=== PATIENT | female | born 1995 | race Caucasian/White ===

== ENCOUNTER 2022-06-25 19:04 | Outpatient (CLI) | payer BC, OTHER, SELFPAY ==
[2022-06-25 20:27] LABS: Cholesterol* 179 mg/dL (90-199); HDL Cholesterol* 35 mg/dL (>=50)
[2022-06-25 20:38] LABS: INR 0.93 (0.91-1.10); Partial Thromboplastin Time* 31 Seconds (23-33)
[2022-06-25 20:44] LABS: LDL Cholesterol Calculated 15 mg/dL (<100); Triglycerides* 646 mg/dL (40-149)
[2022-06-29 06:03] LABS: von WillebrandFactorAntigen 129 % (52-214); vonWillebrandFactorActivityRCF 104 % (51-215)
== END 2022-06-25 19:05 | disposition home or self-care (01) ==
PROVIDERS: Visit Provider Registered Nurse
DX: Z01.419 Encounter for gynecological examination (general) (routine) without abnormal findings (principal); N92.0 Excessive and frequent menstruation with regular cycle; E66.01 Morbid (severe) obesity due to excess calories; Z13.6 Encounter for screening for cardiovascular disorders
CPT/HCPCS: 80061; 84443; 85240; 85245; 85246; 85610; 85730

== ENCOUNTER 2025-01-21 03:54 | Emergency (ER) | payer OTHER, SELFPAY ==
--- OUTSIDE RECORDS SUMMARY | 2025-01-21 03:56 | XMS_ITS | Clinical Summary ---
Author Organization [facility] Address [address] [place] [id number] Care Team Providers Care Nurse Obgyn Name Role Phone Kat Marrufo NP Primary Care Provider [phone] Allergies Active Allergy Reactions Criticality Noted Date Comments Grass Pollen-[place], Standard Other - Describe In Comment Field 01/27/2012 Watery eyes Medications pyridoxine, vitamin B6, (VITAMIN B6) 25 mg tabletIndications:N ausea Take 1 tab twice daily as needed for nausea 60 tablet 3 9 Active ondansetron (ZOFRAN ODT) 4 mg disintegrating tabletIndications:N ausea Place 1 tablet on the tongue every 8 hours if needed for Nausea/Vomit ing. 30 tablet 9 Active vitamin-folic acid 1 mg ( RX) tablet/capsuleIndic ations:Supervision of normal first , antepartum (HC) Take 1 tablet by mouth once daily. 90 tablet 3 9 Active cholecalciferol (VITAMIN D-3) 2,000 unit capsuleIndications: Vitamin D deficiency Take 1 capsule by mouth once daily. 90 capsule 3 9 Active Active Problems Problem Noted Date Diagnosed Date Supervision of normal 10/06/2018 Supervision of normal first , antepartu m 10/01/2018 Overview (10/06/2018): Not sleeping well at night. Difficulty falling asleep Has had chronic pain. Some nausea. Significant other not very involved. Lives at home with dad and siblings. Environmental allergies 05/26/2013 Anxiety 05/26/2013 Dyspepsia 05/26/2013 Immunizations Immunization Administration Dates Next Due AMB Influenza, IIV3 (Age >=3 years)(Flu Clinic Only) 05/15/2010,04/25/2009,05/30/2008 DTaP 10/07/2002 DTaP-HIB (TriHIBIT) 08/09/1998,1997,1997 HIB PRP-OMP (PedvaxHIB) 1997 HPV 9 (Gardasil 9) 04/17/2015 Hepatitis A (Peds) 05/26/2013,01/27/2012 Hepatitis B (Peds) 1997,1997, 997 Human Papilloma Virus Vaccine 05/26/2013, 012 Inactivated Polio Vaccine 10/07/2002,1997, 1997 Influenza, IIV3 (Age 6-35 mos) 05/07/2003 Influenza, IIV3 (Age >=3 years) 05/25/2007,06/15,05/25/2003 MMR 10/07/2002,08/09/1998 Meningococcal Vaccine (Menactra) 11/01/2009 Meningococcal Vaccine (Menomune) 05/26/2013 Oral Polio Vaccine 02/20/1998 Tdap 11/01/2009 Tuberculin (PPD) 05/12/1998 Varicella Vaccine 11/01/2009,05/12/1998 Family History Medical History Relation Name Comments Depression Brother 2 Good Health Brother 3 Other Brother 4 still born Hyperlipidemia Father Pablo Cancer Maternal Grandfather skin Hyperlipidemia Maternal Grandfather Hypertension Maternal Grandfather Hyperlipidemia Maternal Grandmother Good Health Mother Amy Psychiatric illness Mother Amy anxiety Cancer-colon Paternal Grandfather at age 66 from colon cancer Other Paternal Grandmother unknown heart issues - natural causes 67 yr Cancer Paternal Uncle 2 brain cance r Depression Sister 1 Good Health Sister 2 Vandana Relation Name Status Comments Brother 1 Alive Brother 2 Alive Brother 3 Alive Brother 4 Father Pablo Alive Maternal Grandfather Alive Maternal Grandmother Alive Mother Amy Alive Paternal Grandfather Paternal Grandmother Paternal Uncle 1 (Age 16) Paternal Uncle 2 Sister 1 Alive Sister 2 Vandana Alive Social History Tobacco Use Types Packs/Day Years Used Date Smoking Tobacco: Never Smokeless Tobacco: Never Alcohol Use Standard Drinks/Week Comments No 0 (1 standard drink = 0.6 oz pur e alcohol) Humiliation, Afraid, Rape, and Kick questionnair e Answer Date Recorded Fear of Current or Ex-Partner No Emotionally Abused No 10/06/2018 Physically Abused No 10/06/2018 Sexually Abused No 10/06/2018 PHQ-2 Answer Date Recorded PHQ-2 Score 0 09/24/2018 [facility] - Occupational Stress Questionnaire Answer Date Recorded Feeling of Stress Only a little 10/06/2018 Exercise Vital Sign Answer Date Recorde d Days of Exercise per Week 7 days 2018 Minutes of Exercise per Session 60 min 10/06/2018 Comments No Sex and Gender Information Value Date Recorded Sex Assigned at Not on file Legal 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 [employer] Gender Identity Not on file Sexual Orientation Not on file 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 Not on file Not on file Not on file Obstetrics History Para Term AB IAB SAB Ectopic Multiple Livin g Live Births 1 Date Outcome GA Total Labor Labor/2nd/3rd Weight Sex Type Anes PTL Brittni A1 A5 Name Clin Last Filed Vital Signs Vital Sign Reading Time Taken Comments Blood Pressure 112/60 11/20/2018 1:11 PM CDT Pulse 96 11/20/2018 1:11 PM CDT Temperature 36.6 C (97.9 F) 11/15/2018 11:43 AM CDT Respiratory Rate 18 11/20/2018 1:11 PM CDT Oxygen Saturation 100% 11/15/2018 3:36 PM CDT Inhaled Oxygen Concentration - - Weight 84.2 kg (185 lb 11.2 oz) 11/20/2018 1:11 PM CDT Height 161.7 cm (5' 3.66) 11/20/2018 1:11 PM CD T Body Mass Index 32.22 11/20/2018 1:11 PM CDT Plan of Treatment Health Maintenance Due Date Last Done Comments Depression screening for age 12+ 09/29/2019 09/28/2018, 09/24/2018, 09/24/2018 Tetanus booster 11/02/2019 11/01/2009 BMI (ht and wt on same day) for age 18+ 11/21/2019 11/20/2018, 11/06/2018, 10/06/2018, Additional history exists COVID-19 vaccine series ( - 2023- season) 2024 Influenza Vaccine (#1) 2025 0, 04/25/2009, 05/30/2008, Additional history exists Pap test for age 21-65 06/25/2025 2, 06/25/2022, 01/19/2021, Additional history exists Hepatitis B series for 19+ Completed 12/12, 1997, 1997 HIV for age 15-65 Completed 11/03/2018 Hepatitis C screening for age 18-79 Completed 11/03/2018 Pneumococcal series for age 6-49 Aged Out No longer eligible based on patient's age to complete this topic Procedures Procedure Name Priority Date/Time Associated Diagnosis Comments HPV HIGH RISK Routine 06/25/2022 12:00 PM [employer]ICE [employer] ANTI HIV 1/2 Routine 11/03/2018 3:21 PM CDT Encounter for supervision of normal first in first trimester (HC) ANTI HCV Routine 11/03/2018 3:21 PM CDT Encounter for supervision of normal first in first trimester (HC) from Last 3 Months or Most Recently Relevant to Health Maintenance Results * HPV HIGH RISK (06/25/2022 12:00 PM [employer]ICE PRESIDENT [employer]) TYPE 16 Negative Negative 07/02/2022 11:00 AM VICE PRESIDENT INDUSTRIAL RELATIONS [facility] TYPE 18 Negative Negative 07/02/2022 11:00 AM VICE PRESIDENT INDUSTRIAL RELATIONS [facility] OTHER HIGH RISK TYPES Negative Negative 07/02/2022 11:00 AM VICE PRESIDENT IND[employer]RIAL RELATIONS [facility] Other (Cervical) 06/25/2022 12:00 PM VICE PRESIDENT [employer]ATIONS 06/27/2022 4:07 PM VICE PRESIDENT [employer]AL RELATIONS [facility]ative [facility] 07/02/2022 11:00 AM VICE PRESIDENT [employer]AL RELATIONS HPV types 16, 18, 31, 33, 35, 39, 45, 51, 52, 56, 58, 59, 66 and 68 DNA were undetectable or below the pre-set threshold. Methodology: Marie Ricardo 4800 HPV Test us Cayla Ceron NP MICROBIOLOGY Final Res ult [facility] [address] [place] [address], * ANTI HCV (11/03/2018 3:21 PM CDT) HEPATITIS C ANTIBODY Non-React romero Non-React romero 11/03/2018 8:20 PM CDT [facility] Comment:Antibodies to HCV no t detected; does not exclude the possibility of exposure to HCV. Blood BLOOD SPECIMEN / Unknown Venipuncture / Unknown 11/03/2018 3:21 PM CDT 11/03/2018 3:21 PM CDT us Vandana Barclay MD SEND OUTS Final Re sult [facility] [address] [place] [address], [place] * ANTI HIV 1/2 (11/03/2018 3:21 PM CDT) Pathologist [facility] HIV-1/HIV-2 ANTIBODY Non-Reacti ve Non-Reacti ve 11/03/2018 8:35 PM CDT [facility] Comment:HIV-1 p24 and HIV-1/ HIV-2 Ab not detected. Blood BLOOD SPECIMEN / Unknown Venipuncture / Unknown 11/03/2018 3:21 PM CDT 11/03/2018 3:21 PM CDT us Vandana Barclay MD SEND OUTS Final Re sult [facility] [address] [place] [address], from Last 3 Months or Most Recently Relevant to Health Maintenance Care Teams Nurse Obgyn Relationship Specialty Start Date End Date Kat Marrufo NP [address] [place] [address] [place] [address] PCP - General Family Practice 04/17/15
[2025-01-21 04:42] VITALS: BP 144/81; PULSE 79; RESP 18; TEMP 36.7; O2SAT 99; BMI 42.5
[2025-01-21 06:30] VITALS: BP 138/81; PULSE 79; RESP 18; TEMP 36.7; O2SAT 99
[2025-01-21 06:55] VITALS: TEMP 36.7
[2025-01-21] MEDS: CYCLOBENZAPRINE HCL 10 MG TABLET 5 MG PO (06:55)
[2025-01-21] MEDS: KETOROLAC 10 MG TABLET PO (06:55)
[2025-01-21 07:05] LABS: Hematocrit 35.8 % (33.0-51.0); Hemoglobin* 11.5 gm/dL (12.0-16.0); Immature Granulocytes Abs Auto 0.01 K/uL (0.00-0.30); Immature Granulocytes Pct Auto 0.1 %; Mean Corpuscular HGB Conc 32 gm/dL (32-36); Mean Corpuscular Hemoglobin 26 pg (26-34); Mean Corpuscular Volume 81 fL (80-100); RDW Coefficient of Variation % 13.5 % (11.5-15.5); Red Blood Count 4.42 m/uL (4.00-5.20); White Blood Count* 8.91 K/uL (4.50-11.00)
--- NOTE | 2025-01-21 07:07 | ED_ITS ---
HPI - General Adult General Chief complaint: Back Injury/Pain Stated complaint: Back pain Time Seen by Provider: 01/21/25 05:12 Source: patient Mode of arrival: ambulatory Limitations: no limitations History of Present Illness HPI narrative: 29-year-old female presents the emergency department with pain in the midback area that started about 2 hours prior to presentation to the ED. Unfortunately, it is been absolute chaos here and she had a 3 hour wait prior to being seen. Pain is located achy, dull in the midback area, does not radiate. No radiculopathy. No abdominal pain, nausea or vomiting. Did just start her menstrual cycle, tried taking some ibuprofen at bedtime prior to her back pain starting, was worried she could not take more of the medication. Woke at 1:00 a.m. with symptoms, called the triage line and it sounds as though they could not reassure her adequately and advised that she be seen in the ED. no injury or trauma. No dysuria. No unusual vaginal discharge. No prior history of kidney stones. No prior history of similar symptoms. Pain is along the paraspinal muscles, does not radiate around to the front, is not changing, is not exertional or positional. Denies chance of . Not try any interventions prior to coming to ED. Reports her past medical history is benign, no major long-term health problems. No long-term prescription medications. No allergies. ROS is notable for the back pain as stated above. Negative for other gynecological, abdominal, generalized or urinary changes. Related Data Previous Rx's ?Medication ?Instructions ?Recorded cyclobenzaprine 10 mg tablet 5 - 10 mg (0.5 - 1 x 10 m g) PO HS 01/21/25 PRN muscle spasm #10 tabs ketorolac 10 mg tablet 10 mg PO Q6H PRN pain 5 days #20 01/21/25 tabs Allergies Allergy/AdvReac Type Severity Reaction Status Date / Time No Known Drug Allergies Allergy Verified 01/21/25 04:45 [facility] Medical History History of abnormal cervical Pap smear (12/15/18) Vaginal delivery (05/15/19) Family History Family/Other Colon cancer Diabetes Father High blood pressure High cholesterol Family/Other FH: mental illness Sister Liver disease Brother Seizure disorder Social History Smoking Status: Never smoker Second hand tobacco smoke exposure: No How often do you have a drink containing alcohol: never AUDIT-C Alcohol total score: 0 Non-prescribed substance use: denies use Exam Const: Vital Signs, click to edit/add: Vital Signs - 24 hr 01/21/25 04:42 01/21/25 06:30 01/21/25 06:55 Temperature 98.0 F 98.0 F 98.0 F Pulse Rate [Right Pulse Oximeter] 79 79 Respiratory Rate 18 18 Blood Pressure [Ri ght Upper Arm] 144/81 H 138/81 Pulse Oximetry 99 99 Oxygen Delivery Me thod Room Air Room Air Documenting provider has reviewed patient's vital signs: yes Common normals: no apparent distress and alert General appearance: cooperative and well kempt HENMT: Common normals: normocephalic Head and scalp: normocephalic Eye: Common normals: conjunctivae normal General eye: normal appearance of both eyes Conjunctiva: conjunctiva(e) normal Neck & C-Spine: Common normals: full ROM and no lymphadenopathy Resp: Common normals: normal respiratory effort, no use of accessory muscles and clear to auscultation bilaterally Effort & inspection: able to speak in complete sentences Auscultation: clear to auscultation bilaterally Cardio: Common normals: regular rate, regular rhythm, S1 normal heart sound, S2 normal heart sound and no murmurs Rate: regular rate Rhythm: regular rhythm Heart sounds: S1 normal and S2 normal GI: Common normals: Normal to inspection, nondistended, normoactive bowel sounds present, soft to palpation, no hepatosplenomegaly and no masses Palpation: soft and no hepatosplenomegaly Other: Very mild tenderness to mid abdomen, not suprapubic region : Common normals: no CVA tenderness Bladder/kidney exam: no CVA tenderness Back & Pelvis: Common normals: no CVA tenderness Other: Mild tenderness to paraspinal muscles of midback. No point bony tenderness. Normal range of motion. Extremity: Common normals: normal to inspection and normal capillary refill Neuro: Common normals: moves all extremities, no focal motor deficits and gait normal Sensorium/orientation: alert Speech: speech normal Psych: Common normals: speech normal Appearance: well kempt Attitude: engaged Activity/motor behavior: appropriate eye contact Speech: normal speech Skin: Common normals: no rashes or lesions noted General skin exam: no rashes or lesions noted Course Course ED Course: 29-year-old female with mild diffuse mid back pain of uncertain etiology. No features of abdominal pain, nausea vomiting or other indications that would suggest pancreatitis. No red flags that would suggest infection or worrisome gynecological source. Is actively on her menses, low risk of ectopic or other complication. Patient seems concerned out of proportion to exam, therefore we will obtain some basic labs to ensure proper biliary function, no signs of pancreatitis, no or urinary infection. Will give Toradol 10 mg p.o. x1 as well as 5 mg of Flexeril and await clinical response with these results. Reevaluation(s) Time of Reevaluation #1: 08:07 Reevaluation #1: Patient had moderate improvement of her pain with the Toradol and Flexeril. Counseled that her labs are normal. There are no obvious signs of pancreatitis, biliary obstruction, inflammatory process. Her urine did show some blood but this is not terribly unexpected because she is actively on her menses. There were no signs of infection or other alarming features. Counseled patient that I think this is most likely mechanical but certainly could be referred from a gynecological or other intra-abdominal source. I would recommend that since her symptoms have improved quite a bit that we try symptomatic treatment for a few days and if her symptoms have not improved does recommend primary care or Gynecology follow-up for pelvic exam further workup and consideration of ultrasound. I have given her prescription for Toradol 10 mg q.6 hours p.r.n. and Flexeril 5-10 mg at bedtime p.r.n. we discussed the risk of sedation. Alarm symptoms reviewed that would warrant ED presentation. She verbalizes understanding and agreement of this. Vital Signs Vital signs: Initial Vital Signs Temperature 98.0 F 01/21/25 04:42 Temperature Source Temporal Artery Scan 01/21/25 04:42 Pulse Rate 79 01/21/25 04:42 Respiratory Rate 18 01/21/25 04:42 Blood Pressure 144/81 H 01/21/25 04:42 Blood Pressure Mean 102 01/21/25 04:42 Blood Pressure Position Sitting 01/21/25 04:42 Pulse Oximetry 99 01/21/25 04:42 Oxygen Delivery Method Room Air 01/21/25 04:42 Vital Signs Temperature 98.0 F 01/21/25 04:42 Pulse Rate 79 01/21/25 04:42 Respiratory Rate 18 01/21/25 04:42 Blood Pressure 144/81 H 01/21/25 04:42 Pulse Oximetry 99 01/21/25 04:42 Oxygen Delivery Method Room Air 01/21/25 04:42 Temperature 98.0 F 01/21/25 06:55 Pulse Rate 79 01/21/25 06:30 Respiratory Rate 18 01/21/25 06:30 Blood Pressure 138/81 01/21/25 06:30 Pulse Oximetry 99 01/21/25 06:30 Oxygen Delivery Method Room Air 01/21/25 06:30 Medications Administered Medications: Discontinued Medications Generic Name Dose Route Start Last Admin Trade Name Freq PRN Reason Stop Dose Admin Cyclobenzaprine HCl 5 mg 01/21/25 06:44 01/21/25 06:55 Cyclobenzaprine Hcl 10 Mg Tablet PO 01/21/25 06:45 5 mg ONCE ONE Administration Ketorolac Tromethamine 10 mg 01/21/25 06:44 01/21/25 06:55 Ketorolac 10 Mg Tablet PO 01/21/25 06:45 10 mg ONCE ONE Administration Medical Decision Making Lab Data Lab results reviewed: Yes I reviewed the patient's lab results Lab results narrative: Labs reassuring. No signs of pancreatitis or urine infection. There is blood in the urine but of note she is actively on her menstrual cycle. Labs: Lab Results 01/21/25 01/21/25 Range/Units 06:58 07:12 WBC 8.91 (4.50-11.00) K/uL RBC 4.42 (4.00-5.20) m/uL Hgb 11.5 L (12.0-16.0) gm/dL Hct 35.8 (33.0-51.0) % MCV 81 (80-100) fL MCH 26 (26-34) pg MCHC 32 (32-36) gm/dL RDW Coeff of Griffin 13.5 (11.5-15.5) % Plt Count 232 (140-440) K/uL Neut % (Auto) 82.9 H (42.0-72.0) % Lymph % (Auto) 12.8 L (20-44) % Kern % (Auto) 3.7 (0.0-11.0) % Eos % (Auto) 0.2 (0.0-7.0) % Baso % (Auto) 0.3 (0.0-3.0) % Neut # (Auto) 7.40 H (1.7-7.0) K/uL Lymph # (Auto) 1.10 (0.90-2.90) K/uL Kern # (Auto) 0.30 (0.00-0.90) K/UL Eos # (Auto) 0.02 (0.00-0.50) K/uL Baso # (Auto) 0.03 (0.00-0.30) K/uL Abs Immat Gran (auto) 0.01 (0.00-0.30) K/uL Imm/Tot Granulo (auto) 0.1 % Sodium 138 (135-149) mmol/L Potassium 4.1 (3.6-5.1) mmol/L Chloride 108 (96-114) mmol/L Carbon Dioxide 22 (20-32) mmol/L Anion Gap 8 (7-15) mEq/L BUN 15 (5-24) mg/dL Creatinine 0.6 (0.5-1.5) mg/dL Estimated Creat Clear 116.51 Estimated GFR 126 ml/min Glucose 124 H (60-115) mg/dL Calcium 8.9 (8.4-10.6) mg/dL Total Bilirubin 0.3 (0.1-1.5) mg/dL AST 23 (12-35) U/L ALT 16 (4-35) U/L Alkaline Phosphatase 72 (40-150) U/L C-Reactive Protein 1.1 H (0.5-1.0) mg/dL Total Protein 7.1 (6.0-8.3) g/dL Albumin 4.3 (3.3-5.0) g/dL Lipase 62 (23-300) U/L Urine Color Dark yellow (Yellow) Urine Appearance Slightly Cloudy A (Clear) Urine pH 6.0 (5.0-8.5) Ur Specific Bourg >= 1.030 (1.000-1.030) Urine Protein Negative (Negative) Urine Glucose (UA) Negative (Negative) Urine Ketones Negative (Negative) Urine Blood 3+ A (Negative) Urine Nitrite Negative (Negative) Urine Bilirubin Negative (Negative) Urine Urobilinogen 0.2 (0.2-1.0) Ur Leukocyte Esterase Negative (Negative) Urine RBC 10-25 A (0-2) Urine WBC 0-2 (0-5) Ur Squamous Epith Cells None (None-Few) Urine Bacteria None (None) Urine HCG, Qual Negative (Negative) Discharge Plan Discharge Clinical Impression: Back pain Patient Disposition: Home w/ Parent or Adult Condition: Improved Instructions: Back Pain (ED) Additional Instructions: I am glad that the pain medication was at least somewhat helpful for you. I have given you a prescription for this anti-inflammatory pain medicine, Toradol. He may take 1 tablet up to every 6 hours. Try to take it with food and it will cause less stomach irritation. Remember that you can also use Tylenol 1000 mg every 6 hours for pain in addition to this. Tylenol may be less irritating to her stomach but may not be quite as effective for you. I have also given her prescription for a muscle relaxant, Flexeril to use at bedtime if the pain is very bothersome. I suspect that this is either related to a pulled muscle or it may be referred pain from menstrual cramps. If it is either of those things, it should be significantly better within the next 2-3 days. If your pain is persistent, I would recommend a follow-up visit with sketch artist for a pelvic exam, consideration of a pelvic ultrasound or further intra-abdominal workup. You should come to emergency department if you have very high fever, persistent vomiting, severe weakness or other alarming symptoms. Activity Level: No Restrictions Discharge Diet: Regular Prescriptions: New ketorolac 10 mg tablet 10 mg PO Q6H PRN (Reason: pain) 5 Days Qty: 20 0RF cyclobenzaprine 10 mg tablet 5 - 10 mg PO HS PRN (Reason: muscle spasm) Qty: 10 0RF Follow Up/Referrals: Joaquim Aly MD [Primary Care Provider, Family Practice] Stand Alone Forms: [facility] Info Instructions
[2025-01-21 07:26] LABS: Appearance Urine Slightly Cloudy (Clear)
[2025-01-21 07:29] LABS: Ur HCG Qualitative* Negative (Negative)
[2025-01-21 07:37] LABS: Lymphocytes Absolute Auto 1.10 K/uL (0.90-2.90)
[2025-01-21 07:38] LABS: Slide Review Reflex No
[2025-01-21 07:45] LABS: Albumin* 4.3 g/dL (3.3-5.0); Chloride* 108 mmol/L (96-114); Sodium* 138 mmol/L (135-149)
[2025-01-21 07:46] LABS: Potassium* 4.1 mmol/L (3.6-5.1)
[2025-01-21 07:48] LABS: Alanine Aminotransferase* 16 U/L (4-35); Alkaline Phosphatase* 72 U/L (40-150); Anion Gap 8 mEq/L (7-15); Aspartate Amino Transferase* 23 U/L (12-35); Bilirubin Total* 0.3 mg/dL (0.1-1.5); Blood Urea Nitrogen* 15 mg/dL (5-24); Carbon Dioxide* 22 mmol/L (20-32); Creatinine* 0.6 mg/dL (0.5-1.5); Est. Creatinine Clearance* 116.51; Estimated Glomerular Filt Rate 126 ml/min; Total Protein* 7.1 g/dL (6.0-8.3)
[2025-01-21 07:49] LABS: Calcium* 8.9 mg/dL (8.4-10.6); Glucose* 124 mg/dL (60-115)
== END 2025-01-21 08:21 | disposition home or self-care (01) ==
PROVIDERS: Emergency Provider Family Medicine; PCP Family Medicine
DX: M54.9 Dorsalgia, unspecified (principal)
CPT/HCPCS: 36415; 80053; 81001; 81003; 81025; 83690; 85025; 86140; 99283; 99284; A9270